=== PATIENT | female | born 1990 | race Caucasian/White ===

== ENCOUNTER 2018-06-09 11:13 | Inpatient (IN) | payer BC, OTHER ==
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
[2018-06-09 12:30] LABS: ABS Basophils 0 10^3/ul (0-0.2); ABS Eosinophils 0 10^3/ul (0-0.6); ABS Lymphocytes 2.2 10^3/ul (1.0-4.8); ABS Monocytes 0.5 10^3/ul (0-0.8); ABS Neutrophils 5.1 10^3/ul (1.5-7.7); ABS Nucleated RBC 0 10^3/ul; Eosinophil % 0.5 %; Hematocrit 33 % (33-41); Hemoglobin 11.3 g/dL (12.0-16.0); Lymphocyte % 27.8 %; Mean Corpuscular HGB Conc 34 g/dL (31-36); Mean Corpuscular Hemoglobin 29 pg (27-31); Mean Corpuscular Volume 86 fL (80-97); Mean Platelet Volume 8.7 fL (7.4-10.4); Nucleated Red Blood Cells % 0.1; Platelet Count 230 10^3/uL (150-450); Red Cell Distribution Width 14 % (10.5-15); White Blood Count 7.8 10^3/uL (3.5-10.8)
[2018-06-09] MEDS ORDERED: Oxytocin in LR* 20 UNITS/1,000 ML BAG IVPB SCH ×2 (13:00→20:00)
[2018-06-09] MEDS ORDERED: Lactated Ringers 1000 ML Bag* 1,000 ML IV SCH ×3 (13:00→19:00)
--- NOTE | 2018-06-09 16:39 | PN ---
Progress Note - Progress Note Date of Service: 06/09/18 Note: S: Pt has been changing position regularly, up to chair, walking, resting in bed. Reports UCs starting to feel stronger but still manageable. Ready for VE and to discuss ongoing augmentation O: BP 121/66 HR 71 T 97.5 FHT 145bpm. Moderate variability. +Accels. No decels UCs q 2-3 min, mild to moderate. IV pitocin at 8mu/min VE: 5cm/90%/vtx -1, AROM clear fluid A: IUP at 39-1/7 in early active labor No evidence of metabolic acidemia P: Counseled for AROM. Pt and FOB agree. Will continue to monitor closely.
[2018-06-09] MEDS ORDERED: Dibucaine 1% 28.35 GM TUBE PR PRN (18:17)
[2018-06-09] MEDS ORDERED: Acetaminophen TAB* 325 MG PO PRN (18:17)
[2018-06-09] MEDS ORDERED: Glycerin ADULT SUPP PR PRN (18:17)
[2018-06-09] MEDS ORDERED: Witch Hazel PAD* JAR TOPICAL PRN (18:17)
--- NOTE | 2018-06-09 18:17 | PROCNOTE ---
[facility] OB: Delivery Note - Delivery A Date of : 06/09/18 Time of : 17:55 [place] Sex: Male - "[place]" Score 1 Minute: 9 Score 5 Minutes: 9 Gestational Age in Weeks and Days at Delivery: 39 Weeks and 1 Days Delivery Method: Spontaneous Vaginal Labor: Induced - Augmented Did Patient attempt ?: N/A, No Previous Amniotic Fluid: Clear Estimated Blood Loss: 200 Anesthesia/Analgesia: None Delivered By: Rafy Gavin - Nursery Level of Nursery: Regular/Bedside - Perineum Perineal Injury: None/Intact Perineal Repair: None - Events Delivery Events of Note: Pitocin During Labor - Additional Delivery Notes Additional Delivery Notes: Pt admitted at term in latent labor requesting augmentation. IV pitocin and amniotomy to clear fluid led to onset active labor. Length of active phase 4 hours. Pushed x 2 min. liveborn male. Slow, controlled delivery of head. OA to TYLER. Shoulders followed easily. Cord around body x 2 reduced after delivery. [place] vigorous with spontaneous cry. HR>110bpm. Delivered to maternal abdomen. Cord clamped x 2 and cut by FOB when pulsations ceased. Spontaneous delivery intact placenta. Membranes complete. Fundus firm to massage with minimal bleeding. Perineum intact. No repair needed as above. EBL 200mL. At time of note mother and in stable condition. Planning to breast feed.
[2018-06-09] MEDS: Ibuprofen TAB* 600 MG PO PRN (20:11)
[2018-06-09] MEDS ORDERED: Simethicone TAB* 80 MG TAB.CHEW PO SCH (21:00)
[2018-06-09] MEDS: Docusate CAP* 100 MG PO SCH (21:25)
[2018-06-10] MEDS: Ibuprofen TAB* 600 MG PO PRN ×3 (02:42→14:22)
[2018-06-10 06:54] LABS: ABS Basophils 0.1 10^3/ul (0-0.2); ABS Eosinophils 0.1 10^3/ul (0-0.6); ABS Lymphocytes 2.7 10^3/ul (1.0-4.8); ABS Monocytes 0.7 10^3/ul (0-0.8); ABS Neutrophils 7.2 10^3/ul (1.5-7.7); ABS Nucleated RBC 0 10^3/ul; Eosinophil % 0.5 %; Hematocrit 31 % (33-41); Hemoglobin 10.7 g/dL (12.0-16.0); Lymphocyte % 25.1 %; Mean Corpuscular HGB Conc 35 g/dL (31-36); Mean Corpuscular Hemoglobin 30 pg (27-31); Mean Corpuscular Volume 86 fL (80-97); Mean Platelet Volume 8.1 fL (7.4-10.4); Nucleated Red Blood Cells % 0; Platelet Count 190 10^3/uL (150-450); Red Blood Count 3.62 10^6 /uL (3.70-4.87); Red Cell Distribution Width 13 % (10.5-15); White Blood Count 10.8 10^3/uL (3.5-10.8)
[2018-06-10] MEDS: Docusate CAP* 100 MG PO SCH ×2 (08:13→14:22)
[2018-06-10] MEDS ORDERED: Ferrous Gluconate TAB* 324 MG TAB PO SCH (09:00)
[2018-06-10 16:12] VITALS: BP 116/64
== END 2018-06-10 18:45 | disposition home or self-care (01) | DRG 807 ==
LOC: MCHOBOUT 11:13 → MCHOB 11:38
PROVIDERS: ADMIT Midwife; ATTEND Midwife
PROC: 10E0XZZ Delivery of Products of Conception, External Approach (ICD-10-PCS; principal; 2018-06-09)
PROC: 10907ZC Drainage of Amniotic Fluid, Therapeutic from Products of Conception, Via Natural or Artificial Opening (ICD-10-PCS; 2018-06-09)
PROC: 4A1HXCZ Monitoring of Products of Conception, Cardiac Rate, External Approach (ICD-10-PCS; 2018-06-09)
DX: O69.82X0 Labor and delivery complicated by other cord entanglement, without compression, not applicable or unspecified (principal); Z37.0 Single live birth; Z3A.39 39 weeks gestation of pregnancy
CPT/HCPCS: 36415; 85025; 86850; 86900; 86901; A9270-GY

== ENCOUNTER 2020-01-12 10:05 | Inpatient (IN) ==
[2020-01-12 13:24] LABS: Urine Benzodiazepine Screen None Detected (None Detect); Urine Cannabinoids Screen None Detected (None Detect); Urine Opiates Screen None Detected (None Detect)
[2020-01-12] MEDS ORDERED: Witch Hazel PAD JAR ONE (21:19)
[2020-01-12] MEDS ORDERED: Witch Hazel PAD JAR TOPICAL PRN (21:21)
[2020-01-12] MEDS ORDERED: Dibucaine 1% OINT 28.35 GM TUBE PR PRN (21:21)
[2020-01-12] MEDS ORDERED: Lactated Ringers 1000 ml BAG 1,000 ML IV SCH (22:00)
[2020-01-13 07:07] LABS: ABS Basophils 0.1 10^3/ul (0-0.2); ABS Eosinophils 0.1 10^3/ul (0-0.6); ABS Lymphocytes 2.6 10^3/ul (1.0-4.8); ABS Monocytes 0.6 10^3/ul (0-0.8); ABS Neutrophils 7.2 10^3/ul (1.5-7.7); Eosinophil % 0.5 %; Hematocrit 32 % (35-47); Hemoglobin 11.1 g/dL (12.0-16.0); Lymphocyte % 24.5 %; Mean Corpuscular HGB Conc 35 g/dL (31-36); Mean Corpuscular Hemoglobin 30 pg (27-31); Mean Corpuscular Volume 87 fL (80-97); Mean Platelet Volume 8.5 fL (7.4-10.4); Platelet Count 185 10^3/uL (150-450); Red Blood Count 3.68 10^6 /uL (3.70-4.87); Red Cell Distribution Width 14 % (10-15); White Blood Count 10.6 10^3/uL (3.5-10.8)
[2020-01-14 08:45] VITALS: BP 115/66
== END 2020-01-14 10:19 | disposition home or self-care (01) | DRG 560 ==
LOC: MCHOBOUT 10:05 → MCHOB 12:06
PROVIDERS: ADMIT Midwife; ATTEND Midwife